=== PATIENT | female | born 1995 | race African-American/Black ===

== ENCOUNTER 2024-06-11 18:35 | Emergency (ER) | payer MEDICAID ==
[~2024-06-11] VITALS: Ht 154.9 cm; Wt 68.0 kg
[2024-06-11 18:54] VITALS: O2SAT 100
[2024-06-11] MEDS: TETRACAINE HCL 0.5% OPHT DROP 2 ML BOTTLE OP ONE (22:20)
[2024-06-11] MEDS ORDERED: FLUORESCEIN SODIUM 1 MG STRIP ONE (22:20)
[2024-06-11] MEDS: FLUORESCEIN SODIUM 1 MG STRIP OP ONE (22:20)
[2024-06-11] MEDS ORDERED: TETRACAINE HCL 0.5% OPHT DROP 2 ML BOTTLE ONE (22:20)
[2024-06-11 23:26] LABS: ALANINE AMINOTRANSFERASE 22 U/L (14-59); ALBUMIN 4.5 g/dL (3.4-5.0); ALKALINE PHOSPHATASE 61 U/L (50-136); ASPARTATE AMINOTRANSFERASE 18 U/L (15-37); CALCIUM 9.2 mg/dL (8.5-10.1); CARBON DIOXIDE 28 mmol/L (21-32); CHLORIDE 102 mmol/L (98-107); CREATININE 0.6 mg/dL (0.6-1.3); GLUCOSE 98 mg/dL (74-106); POTASSIUM 3.9 mmol/L (3.5-5.1); SODIUM SERUM 138 mmol/L (136-145); TOTAL PROTEIN, SERUM 8.3 g/dL (6.4-8.2); UREA NITROGEN, BLOOD 10 mg/dL (7-18)
[2024-06-11] MEDS ORDERED: ACETAMINOPHEN 500 MG TABLET ONE (23:36)
[2024-06-11] MEDS ORDERED: PROCHLORPERAZINE MALEATE 5 MG TABLET ONE (23:37)
[2024-06-11] MEDS: PROCHLORPERAZINE MALEATE 5 MG TABLET PO ONE (23:40)
[2024-06-11] MEDS: ACETAMINOPHEN 500 MG TABLET PO ONE (23:40)
[2024-06-12] LABS: BASOPHILS % (AUTO) 0.4 % (0.0-2.0); EOSINOPHILS # (AUTO) 0.1 K/uL (0.0-0.7); EOSINOPHILS % (AUTO) 1.1 % (0.0-7.0); HEMATOCRIT 38.5 % (31.2-41.9); LYMPHOCYTES # (AUTO) 2.4 K/uL (0.8-4.8); MEAN CORPUSCULAR HEMOGLOBIN 30.9 uug (24.7-32.8); MEAN CORPUSCULAR HGB CONC 34 g/dL (32.3-35.6); MEAN CORPUSCULAR VOLUME 91.5 fL (75.5-95.3); MONOCYTES # (AUTO) 0.4 K/uL (0.1-1.30); MONOCYTES % (AUTO) 6.2 % (0.0-11.0); NEUTROPHILS # (AUTO) 4.3 K/uL (1.8-8.9); NEUTROPHILS % (AUTO) 59.3 % (38.5-71.5); PLATELET COUNT (AUTO) 185 K/uL (179-408); RED BLOOD CELL COUNT(AUTO) 4.21 MIL/uL (3.63-4.92); RED CELL DISTRIBUTION WIDTH 12.8 % (12.3-17.7); WHITE BLOOD COUNT (AUTO) 7.2 K/uL (3.8-11.8)
== END 2024-06-12 00:40 | disposition home or self-care (01) ==
LOC: ER 18:37
DX: R51.9 Headache, unspecified (principal); G93.0 Cerebral cysts
CPT/HCPCS: 99284; 70450; 80053; 85025; 36415; J8499; A4606; A4663; A9150